=== PATIENT | female | born 1965 | race African-American/Black ===

== ENCOUNTER → 2016-11-21 | Outpatient (CLI) | payer BC ==
[~2016-11-21] MED LIST: CLONAZEPAM 0.50.5 M1 PO; CYMBALTA20 MG PO; IRON325 PO
[2016-11-21 14:10] VITALS: BP 134/84
[2016-11-21 14:55] VITALS: BP 135/83
[2016-11-21 15:25] VITALS: BP 133/83
== END ==
LOC: OPONC
DX: D50.8 Other iron deficiency anemias (principal)
CPT/HCPCS: 95000

== ENCOUNTER → 2019-11-10 | Outpatient (CLI) | payer BC | LOC: LAB 11:15 | PROVIDERS: ATTEND Anesthesiology | DX: Z01.812 Encounter for preprocedural laboratory examination (principal); Z11.59 Encounter for screening for other viral diseases ==